=== PATIENT | male | born 1965 ===

== ENCOUNTER 2019-02-14 07:31 | Day surgery (SDC) | payer OTHER ==
[~2019-02-14 07:31] MED LIST: ceFAZolin/Water 2 GM/20 ML 2 GM/20 ML SYRINGE IV NR
--- NOTE | 2019-02-14 08:20 | Anesthesia Day of Surgery ---
Anesthesia Day of Surgery - Day of Surgery Patient Examined: Yes Patient H&P Reviewed: Yes Patient is NPO: Yes
--- NOTE | 2019-02-14 08:20 | Anesthesia Consultation ---
Anesthesia Consult and Med Hx Date of service: 02/14/19 - Airway Anesthetic Teeth Evaluation: Good ROM Head & Neck: Adequate Mental/Hyoid Distance: Adequate Mallampati Class: Class II Intubation Access Assessment: Probably Good - Pulmonary Exam CTA: Yes - Cardiac Exam Cardiac Exam: RRR - Pre-Operative Health Status ASA Pre-Surgery Classification: ASA3 Proposed Anesthetic Plan: MAC Nerve Block: [place] - Pulmonary Hx Smoking: No COPD: No Hx Sleep Apnea: Yes (DX SLEEP APNEA WITH CPAP USE.) - Cardiovascular System Hx Hypertension: Yes (X 12 YRS) - Central Nervous System Hx Back Pain: Yes (NERVE PAIN RFA- LOWER BACK PAIN) Hx Psychiatric Problems: Yes (PTSD) - Gastrointestinal Hx Gastroesophageal Reflux Disease: Yes (asymptomatic with omeprazole) - Endocrine Hx Non-Insulin Dependent Diabetes: Yes Hx Hypothyroidism: No - Other Systems Hx Alcohol Use: No Hx Substance Use: No Hx Cancer: No Hx Obesity: Yes
[2019-02-14] MEDS ORDERED: MIDAZOLAM 2 MG/2 ML INJ ONE ×2 (08:33→10:32)
[2019-02-14] MEDS ORDERED: BUPIVACAINE/PF (0.5%) 5 MG/1 ML 30 ML VIAL INFILTRATI ONE ×2 (08:33→09:28)
[2019-02-14] MEDS ORDERED: LACTATED RINGERS 1,000 ML ONE (08:39)
[2019-02-14] MEDS ORDERED: LACTATED RINGERS 1,000 ML IV SCH (08:40)
[2019-02-14] MEDS ORDERED: LIDOCAINE MPF (2%) 20 MG/1 ML VIAL 5 ML ONE (10:18)
[2019-02-14] MEDS ORDERED: PROPOFOL 200 MG/20 ML VIAL IV ONE ×2 (10:18)
[2019-02-14] MEDS ORDERED: fentaNYL 100 MCG/2 ML INJ ONE (10:19)
[2019-02-14] MEDS ORDERED: SODIUM CHLORIDE 0.9% IRR 1,000 ML BOTTLE IR ONE (10:51)
--- NOTE | 2019-02-14 11:27 | Procedure Note ---
Date of procedure: 02/14/19 Pre-op diagnosis: right cubital tunnel and carpal tunnel syndromes Post-op diagnosis: same Procedure: Right endoscopic carpal tunnel release Right ulnar nerve release at the cubital tunnel Procedure The portion patient was brought to the or pushing or table supine position following induction and intubation by anesthesia patient's right upper extremity was prepped and draped in the usual sterile manner. A timeout procedure was done to identify the patient and correct operative site. The arm was exsanguinated followed by insufflation of the pneumatic tourniquet to 250 mmHg. An incision was made at the distal wrist crease was used and taken down sharply through skin and subcutaneous using loupe magnification the superficial flexor sheath was identified using synovial spreaders and dilators the canal was entered arthroscopically next the transverse carpal ligament was identified the knife blade assembly was then elevated the structure was released from distal to proximal care was taken to remain in line with the fourth metacarpal. Next the arthroscope was then removed and attention was turned to the cubital tunnel the medial epicondyles and olecranon process was identified next a incision was made between these 2 structures this was taken down sharply through skin and subcutaneous the ligament was then seen overlying the cubital tunnel this was released using a combination of scissors and a #15 blade care was taken to protect the ulnar nerve during this portion of the procedure The elbow was then taken through a range of motion the ulnar nerve appeared to be stable within the cubital tunnel. Next the wounds were copiously irrigated and were closed and a standard routine fashion. Dressings were applied the patient was extubated and was taken to postanesthesia recovery Anesthesia: MAC Anesthesia: MAC, regional Surgeon: TABITHA SALMON Machine Feeder Raw Stock: CARLA GRIDER Estimated blood loss: minimal Pathology: none Condition: stable Disposition: PACU
[2019-02-14 12:49] VITALS: BP 127/77
[2019-02-14] MEDS ORDERED: EPINEPHrine/PF (1:1,000) 1 MG/1 ML INJ ONE (17:05)
[2019-02-14] MEDS ORDERED: BUPIVACAINE-EPINEPHRINE/PF 0.25%-1:200,000 (10 ML) VIAL INFILTRATI ONE (17:06)
--- NOTE | 2019-02-14 17:51 | Post Anesthesia Evaluation ---
- Post Anesthesia Evaluation Patient Participated: Yes Airway Patent: Yes Stable Respiratory Function: Yes Nausea/Vomiting: No Temp > 96.8F: Yes Pain Manageable: Yes Adequeate Hydration: Yes Anesthesia Complications: No
== END 2019-02-14 07:32 | disposition home or self-care (01) ==
LOC: OR 07:31
PROVIDERS: ATTEND Orthopaedic Surgery
DX: G56.01 Carpal tunnel syndrome, right upper limb (principal); G56.21 Lesion of ulnar nerve, right upper limb; G43.909 Migraine, unspecified, not intractable, without status migrainosus; E78.00 Pure hypercholesterolemia, unspecified; I10 Essential (primary) hypertension; G47.30 Sleep apnea, unspecified; K21.9 Gastro-esophageal reflux disease without esophagitis; E66.9 Obesity, unspecified; E11.9 Type 2 diabetes mellitus without complications; F32.9 Major depressive disorder, single episode, unspecified; F41.9 Anxiety disorder, unspecified; Z79.899 Other long term (current) drug therapy; Z79.84 Long term (current) use of oral hypoglycemic drugs; Z90.49 Acquired absence of other specified parts of digestive tract; Z68.33 Body mass index [BMI] 33.0-33.9, adult; Z98.890 Other specified postprocedural states; Z98.52 Vasectomy status
CPT/HCPCS: 29848; 36415; 64718; 82962; 84132; J0171; J0690; J2250; J2704; J3010; J7120

== ENCOUNTER 2019-03-14 06:27 | Day surgery (SDC) | payer OTHER ==
[~2019-03-14 06:27] MED LIST changes: +CELECOXIB 200 MG CAP PO SCH; +GABAPENTIN 300 MG CAP PO SCH; +LACTATED RINGERS 1,000 ML IV SCH; +MIDAZOLAM 2 MG/2 ML INJ IV SCH
[2019-03-14] MEDS ORDERED: BACTERIOSTATIC SODIUM CHLORIDE 0.9% 30 ML VIAL INFILTRATI ONE (06:52)
[2019-03-14] MEDS ORDERED: BUPIVACAINE/PF (0.5%) 5 MG/1 ML 10 ML VIAL INFILTRATI ONE ×2 (08:09→09:03)
--- NOTE | 2019-03-14 08:18 | Anesthesia Day of Surgery ---
Anesthesia Day of Surgery - Day of Surgery Patient Examined: Yes Patient H&P Reviewed: Yes Patient is NPO: Yes Beta Blockers: No Cardiac Clearance: No Pulmonary Clearance: No David's Test: N/A
[2019-03-14] MEDS ORDERED: fentaNYL 100 MCG/2 ML INJ ONE (08:25)
[2019-03-14] MEDS ORDERED: KETAMINE/STERILE WATER 50 MG/ML SYRINGE ONE (08:25)
[2019-03-14] MEDS ORDERED: PROPOFOL 200 MG/20 ML VIAL IV ONE (08:25)
--- NOTE | 2019-03-14 08:27 | Anesthesia Consultation ---
Anesthesia Consult and Med Hx - Airway Anesthetic Teeth Evaluation: Good ROM Head & Neck: Adequate Mental/Hyoid Distance: Adequate Mallampati Class: Class II Intubation Access Assessment: Probably Good - Pulmonary Exam CTA: Yes - Cardiac Exam Cardiac Exam: RRR - Pre-Operative Health Status ASA Pre-Surgery Classification: ASA3 Proposed Anesthetic Plan: MAC - Pulmonary Hx Smoking: No COPD: No Hx Sleep Apnea: Yes (DX SLEEP APNEA WITH CPAP USE.) - Cardiovascular System Hx Hypertension: Yes (X 12 YRS) - Central Nervous System Hx Back Pain: Yes Hx Psychiatric Problems: Yes (PTSD) - Gastrointestinal Hx Gastroesophageal Reflux Disease: Yes (asymptomatic with omeprazole) - Endocrine Hx Non-Insulin Dependent Diabetes: Yes ( Pre-Op BS 276 / 226) Hx Hypothyroidism: No - Other Systems Hx Alcohol Use: No Hx Substance Use: No Hx Cancer: No Hx Obesity: Yes
[2019-03-14] MEDS ORDERED: SODIUM CHLORIDE 0.9% IRR 1,000 ML BOTTLE IR ONE (09:03)
--- NOTE | 2019-03-14 09:30 | Procedure Note ---
Date of procedure: 03/14/19 Pre-op diagnosis: left carpal tunnel syndrome Post-op diagnosis: same Procedure: left endoscopic carpal tunnel release Procedure The patient was brought to the OR and was placed on the OR table supine. He was induced using a Mac anesthesia, following this the left upper extremity was prepped and draped in the usual sterile manner. A timeout procedure was done to identify the patient and the correct operative site.The left arm was then exsanguinated followed by inflation of the pneumatic tourniquet to 250 mmHg. A volar incision was made along the distal wrist crease using Kathi magnification and the incision was taken down through skin and subcutaneous the superficial flexor sheath was identified using a synovial editorial project manager as well as tissue dilators the carpal canal was entered, next the arthroscope was inserted with the wrist in maximum dorsiflexion the transverse carpal ligament was visualized, the distal extent was appreciated by way the fatty tissue distally. The arthroscope was placed in line with the fourth metacarpal and the knife blade assembly was elevated and the transverse carpal ligament was released from distal to proximal the arthroscope was then reinserted the ligament appeared to be released completely following this the scope was then removed the incision was repaired routine postop dressings were applied patient tolerated procedure note there were no complications and was taken to postanesthesia recovery in stable condition Anesthesia: MAC Surgeon: TABITHA SALMON Ornamental Plasterer Helper: CARLA GRIDER Estimated blood loss: minimal Pathology: none Condition: stable Disposition: PACU
[2019-03-14 09:52] VITALS: BP 131/77
== END 2019-03-14 06:28 | disposition home or self-care (01) ==
LOC: OR 06:27
PROVIDERS: ATTEND Orthopaedic Surgery
DX: G56.02 Carpal tunnel syndrome, left upper limb (principal); G47.30 Sleep apnea, unspecified; I10 Essential (primary) hypertension; F43.10 Post-traumatic stress disorder, unspecified; K21.9 Gastro-esophageal reflux disease without esophagitis; E11.9 Type 2 diabetes mellitus without complications; E66.9 Obesity, unspecified; F41.9 Anxiety disorder, unspecified; F32.9 Major depressive disorder, single episode, unspecified; E78.00 Pure hypercholesterolemia, unspecified; Z79.899 Other long term (current) drug therapy; Z79.84 Long term (current) use of oral hypoglycemic drugs; Z68.33 Body mass index [BMI] 33.0-33.9, adult; Z98.890 Other specified postprocedural states; Z82.49 Family history of ischemic heart disease and other diseases of the circulatory system; Z83.3 Family history of diabetes mellitus
CPT/HCPCS: 29848; 36415; 82962; 84132; J0690; J2250; J2704; J3010; J7120